=== PATIENT | female | born 1985 | race Caucasian/White ===

== ENCOUNTER 2017-12-11 20:17 | Emergency (ER) | payer OTHER, MEDICAID, SELFPAY | END 2017-12-11 21:15 | disposition home or self-care (01) | PROVIDERS: Emergency Provider Internal Medicine; Family Provider Physician Assistant; PCP Physician Assistant; Visit Provider Internal Medicine | DX: J01.90 Acute sinusitis, unspecified (principal); B97.89 Other viral agents as the cause of diseases classified elsewhere; R05 Cough | CPT/HCPCS: 99282 ==

== ENCOUNTER 2018-04-16 09:11 | Emergency (ER) | payer OTHER, MEDICAID, SELFPAY ==
[2018-04-16 09:14] VITALS: BP 127/84; PULSE 105; RESP 14; TEMP 37.1; O2SAT 97; BMI 38.2
--- NOTE | 2018-04-16 09:15 | ED.UPPEXIN ---
HPI - Extremity Injury (Upper) General Chief Complaint: Extremity Injury, Upper Stated Complaint: THINK I BROKE RIGHT WRIST Time Seen by Provider: 04/16/18 09:14 Source: patient Mode of arrival: ambulatory Limitations: no limitations History of Present Illness HPI narrative: 32-year-old female here for evaluation of right wrist injury. Patient states that it occurred last evening when she fell down some stairs. She states she was drinking last evening. No other injuries reported from the event. No loss of consciousness. States she did not hit her head. Woke up this morning and has pain in her right wrist. No prior injuries. Related Data Previous Rx's Medication Instructions Recorded acetaminophen-codeine 1 tab PO Q4-6H PRN #14 tab 04/16/18 Allergies Allergy/AdvReac Type Severity Reaction Status Date / Time amoxicillin [AMOXICILLIN] AdvReac Intermediate HIVES Verified 04/16/18 09:17 doxycycline [DOXYCYCLINE] AdvReac Intermediate HIVES Verified 04/16/18 09:17 hydrocodone [From VICODIN] AdvReac Mild HIVES - Verified 04/16/18 09:17 can take Tylenol without reaction Review of Systems Constitutional Denies frequent falls and Denies headache(s) ENT Ears, Nose, Mouth, and Throat: Denies headache(s) Cardiovascular Denies chest pain and Denies dyspnea Respiratory Denies dyspnea Gastrointestinal Gastrointestinal: Denies abdominal pain Musculoskeletal Comments: Right wrist pain Integumentary/Breasts Denies lesions and Denies rash Neurologic Denies frequent falls and Denies headache(s) Comments: No numbness or tingling right wrist Hematologic/Lymphatic Denies easy bleeding and Denies easy bruising [facility] Medical History Healthy adult (Acute) Surgical History History of tonsillectomy Status post appendectomy Family History Father Age: 65 History of skin cancer Grandmother Ovarian cancer Mother Age: 62 History of hypothyroidism Barretts esophagus Unspecified urinary incontinence Social History Smoking Status: Current some day smoker Exam Initial Vital Signs Initial Vital Signs: Vital Signs Temperature 98.7 F 08/22/18 09:14 Pulse Rate 105 H 04/16/18 09:14 Respiratory Rate 14 04/16/18 09:14 Blood Pressure 127/84 H 04/16/18 09:14 Pulse Oximetry 97 04/16/18 09:14 Const General: cooperative, healthy appearing, comfortable, well developed and well groomed Orientation: alert, awake and oriented x3 HENMT Head: normal to inspection and normocephalic Resp Effort & Inspection: normal respiratory effort Cardio Rate: regular rate Skin Lesions: no lesions Rashes: no rashes Wounds: no wounds Neuro Other: Sensation intact to light touch right upper extremity Extrem Other: Right shoulder unremarkable Right upper arm unremarkable Right elbow unremarkable Patient with pain with supination. Is able to pronate. Unable to flex and extend at the wrist without pain. Right hand unremarkable. Psych Appearance: grossly normal and well kempt Procedures Orthopedic Splinting/Casting Injury #1: Side: right Upper Extremity Injury Location: forearm Upper Extremity Immobilizer: sugar tong splint Course Orders Ordered: ED Orders 04/16/18 09:22 XR wrist RT min 3V Stat Hydromorphone HCl (Dilaudid) 0.5 mg IM Q4H PRN PRN Reason: Pain, Severe (7-10) Last Admin: 04/16/18 10:07 Dose: 0.5 mg Vital Signs - 8 hr 04/16/18 09:14 04/16/18 09:29 04/16/18 10:39 Temperature 98.7 F Pulse Rate 105 H 96 H Pulse Rate [Right Radial] 100 H Respiratory Rate 14 16 Blood Pressure 127/84 H Blood Pressure [Left Arm] 121/71 H Pulse Oximetry 97 99 MDM - Extremity Injury (Upper) Imaging Data XR wrist: Radiologist's impression: [address] [address] XRay Report Signed Patient: Amanda Gonzales MMR#: [id number] : 1985Acct:[id number] Age/Sex: 32 / FDate of Service: 04/16/18 Loc: ED Accession Number: [id number] Procedure: XR wrist RT min 3V Ordering Provider: Mandeep Demarco D.O. PROCEDURE: XR WRIST RT MIN 3V INDICATIONS: fall/ pain right wrist. TECHNIQUE: 3 views of the wrist were acquired. COMPARISON: None. FINDINGS: Bones: No dislocations. No suspicious bony lesions. There is a comminuted intra-articular fracture that with dorsal angulation involving the distal radius and ulnar styloid process fracture across its base, displaced dorsally and mildly medially. Scaphoid view: Not obtained but no trauma to the scaphoid is found. Soft tissues: No suspicious soft tissue calcifications. IMPRESSION: Distal radius and ulnar fractures as discussed, with appreciable malalignment and intra-articular comminution. Dictated by: Porter Mireles M.D. on 04/16/2018 at 9:48 Approved by: Porter Mireles M.D. on 04/16/2018 at 9:49 MDM Narrative Medical decision making narrative: Neurovascularly intact. Distal radius and ulnar fractures as described above. Patient was placed in a sugar-tong splint. She was given follow-up instructions with regard to Orthopedics. She was given care instructions of the splint. She expressed understanding and agreement with plan. Discharge Plan Departure Patient Disposition: Home Clinical Impression: Fracture of wrist Instructions: DI for Wrist Fracture, How to Take Care of Your Splint Activity Restrictions/Additional Instructions: Recommend that you contact her primary care doctor. Also recommend you contact the [facility] at [phone]. Keep the splint on and keep it clean and keep it dry. Return to the emergency department for any new or worsening symptoms Prescriptions: New acetaminophen-codeine 300-30 mg tablet 1 tab PO Q4-6H PRN (Reason: pain) Qty: 14 RF: 0
--- NOTE | 2018-04-16 09:22 | DI.RAD.S_ITS ---
PROCEDURE: XR WRIST RT MIN 3V INDICATIONS: fall/ pain right wrist. TECHNIQUE: 3 views of the wrist were acquired. COMPARISON: None. FINDINGS: Bones: No dislocations. No suspicious bony lesions. There is a comminuted intra-articular fracture that with dorsal angulation involving the distal radius and ulnar styloid process fracture across its base, displaced dorsally and mildly medially. Scaphoid view: Not obtained but no trauma to the scaphoid is found. Soft tissues: No suspicious soft tissue calcifications. IMPRESSION: Distal radius and ulnar fractures as discussed, with appreciable malalignment and intra-articular comminution. Dictated by: Porter Mireles M.D. on 04/16/2018 at 9:48 Approved by: Porter Mireles M.D. on 04/16/2018 at 9:49
[2018-04-16 09:29] VITALS: PULSE 100
[2018-04-16] MEDS: HYDROMORPHONE 2 MG INJ 0.5 MG IM (10:07)
[2018-04-16 10:39] VITALS: BP 121/71; PULSE 96; RESP 16; O2SAT 99
== END 2018-04-16 11:01 | disposition home or self-care (01) ==
PROVIDERS: Emergency Provider Emergency Medicine; Family Provider Physician Assistant; PCP Physician Assistant
DX: S62.101A Fracture of unspecified carpal bone, right wrist, initial encounter for closed fracture (principal); W10.8XXA Fall (on) (from) other stairs and steps, initial encounter
CPT/HCPCS: 73110; 96372; 99282; 99283; J1170

== ENCOUNTER 2018-04-17 07:08 | Emergency (ER) | payer OTHER, MEDICAID, SELFPAY ==
[2018-04-17 07:14] VITALS: BP 149/100; PULSE 81; RESP 15; TEMP 36.8; O2SAT 96; BMI 38.2
[2018-04-17] MEDS: OXYCODONE/ACETAMINOPHEN 5/325 TABLET 1 TAB PO (07:26)
--- NOTE | 2018-04-17 07:26 | ED.RECABL ---
HPI - Recheck/Abnormal Lab/Rx General Chief Complaint: Recheck/Abnormal Lab/Rx Stated Complaint: rt arm pain Time Seen by Provider: 04/17/18 07:11 Source: patient Mode of arrival: ambulatory Limitations: no limitations History of Present Illness HPI narrative: Patient is a 32-year-old female that I evaluated yesterday with a distal radius fracture placed in a splint sent home on Tylenol with codeine secondary to her recommendation for this medication here today for continued pain and feel like her pain medication is not working for her. No numbness or tingling in her fingers. She did call Orthopedics yesterday and stated that they were going to call her back today. No other new symptoms except for continued pain. Related Data Previous Rx's Medication Instructions Recorded acetaminophen-codeine 1 tab PO Q4-6H PRN #14 tab 04/16/18 oxycodone-acetaminophen 1 tab PO Q4-6H PRN #14 tab 04/17/18 Allergies Allergy/AdvReac Type Severity Reaction Status Date / Time amoxicillin [AMOXICILLIN] AdvReac Intermediate HIVES Verified 04/17/18 07:14 doxycycline [DOXYCYCLINE] AdvReac Intermediate HIVES Verified 04/17/18 07:14 hydrocodone [From VICODIN] AdvReac Mild HIVES - Verified 04/17/18 07:14 can take Tylenol without reaction Review of Systems Constitutional Denies fever(s) Musculoskeletal Comments: Right wrist pain Integumentary/Breasts Comments: No change in color to her fingers Neurologic Comments: No tingling to her fingers [facility] Medical History Healthy adult (Acute) Surgical History History of tonsillectomy Status post appendectomy Family History Father Age: 65 History of skin cancer Grandmother Ovarian cancer Mother Age: 62 History of hypothyroidism Barretts esophagus Unspecified urinary incontinence Social History Smoking Status: Current some day smoker Exam Initial Vital Signs Initial Vital Signs: Vital Signs Temperature 98.3 F 04/17/18 07:14 Pulse Rate 81 04/17/18 07:14 Respiratory Rate 15 04/17/18 07:14 Blood Pressure 149/100 H 04/17/18 07:14 Pulse Oximetry 96 04/17/18 07:14 Const General: cooperative, healthy appearing, comfortable, well developed, well groomed and No acute distress Cardio Other: Capillary refill less than 2 sec right fingers Neuro Other: Sensation intact to light touch right fingers Extrem Other: Right upper extremity in splint that was placed yesterday Psych Appearance: grossly normal and well kempt Course Orders Ordered: Discontinued Medications Ibuprofen (Advil) 800 mg PO NOW ONE Stop: 04/17/18 07:29 Last Admin: 04/17/18 07:30 Dose: 800 mg Oxycodone/Acetaminophen (Percocet 5/325) 1 tab PO NOW ONE Stop: 04/17/18 07:23 Last Admin: 04/17/18 07:26 Dose: 1 tab Vital Signs - 8 hr 04/17/18 07:14 Temperature 98.3 F Pulse Rate 81 Respiratory Rate 15 Blood Pressure 149/100 H Pulse Oximetry 96 MDM - Recheck/Abnormal Lab/Rx MDM Narrative Medical decision making narrative: Jorge bandage was removed in the splint was loosened. Patient states that she feels better after this. She was also given a Percocet here in the emergency department. Patient states she can take Percocet but not Vicodin. The splint was rewrapped with an Jorge bandage. The patient was given return instructions again. She was neurovascularly intact. I feel that this was not compartment syndrome just expected pain that was not controlled. I discussed this with the patient. She expressed understanding and agreement with plan. Discharge Plan Departure Patient Disposition: Home Clinical Impression: Closed fracture distal radius and ulna Instructions: How to Take Care of Your Splint Activity Restrictions/Additional Instructions: Take your medication as directed and like we discussed. Be sure to follow up with Orthopedics like we discussed. Keep the arm elevated as much as possible. Return to the emergency department for any new or worsening symptoms Prescriptions: New oxycodone-acetaminophen 5-325 mg tablet 1 tab PO Q4-6H PRN (Reason: pain) Qty: 14 RF: 0 No Action acetaminophen-codeine 300-30 mg tablet 1 tab PO Q4-6H PRN (Reason: pain) Qty: 14 RF: 0
[2018-04-17] MEDS: IBUPROFEN 400 MG TABLET 800 MG PO (07:30)
[2018-04-17 08:07] VITALS: BP 134/87; PULSE 82; RESP 14; O2SAT 98
== END 2018-04-17 08:07 | disposition home or self-care (01) ==
PROVIDERS: Emergency Provider Emergency Medicine; PCP Physician Assistant
DX: S52.501D Unspecified fracture of the lower end of right radius, subsequent encounter for closed fracture with routine healing (principal); S52.601D Unspecified fracture of lower end of right ulna, subsequent encounter for closed fracture with routine healing
CPT/HCPCS: 36415; 85025; 99282; 99283

== ENCOUNTER → 2018-04-17 16:24 | Outpatient (CLI) | payer OTHER, MEDICAID, SELFPAY ==
[2018-04-17 17:05] LABS: Add Manual Diff / Slide Review NO; Basophils Percent Auto 0.6 % (0-2); Eosinophils Percent Auto 1.1 % (2-4); Hematocrit 38.4 % (36-46); Hemoglobin 13.4 g/dL (12.0-16.0); Lymphocytes Percent Auto 26.2 % (25-40); Mean Corpuscular HGB Conc 34.9 % (30-36); Mean Corpuscular Hemoglobin 32.7 PG (26-34); Mean Corpuscular Volume 93.8 fL (80-100); Monocytes Percent Auto 5.7 % (3-14); Neutrophils Absolute Auto 6200 /uL (3000-5900); Neutrophils Percent Auto 66.4 % (50-75); Platelet Count 283 X10^3/uL (150-400); Red Blood Cell Count 4.09 X10^6/uL (4.0-5.2); Red Cell Distribution Width 12.7 % (11.6-14.8); White Blood Cell Count 9.4 X10^3/uL (4.5-11.0)
== END ==
PROVIDERS: PCP Physician Assistant; Visit Provider Orthopaedic Surgery
DX: S52.551A Other extraarticular fracture of lower end of right radius, initial encounter for closed fracture (principal)
CPT/HCPCS: 36415; 85025

== ENCOUNTER 2018-04-18 09:43 | Day surgery (SDC) | payer OTHER, MEDICAID, SELFPAY ==
[2018-04-18] VITALS (8 sets, daily range): BP systolic 109–130; BP diastolic 70–86; PULSE 88–106; RESP 15–23; TEMP 36.3–36.7; O2SAT 93–98; BMI 39.1
--- NOTE | 2018-04-18 10:22 | SUR.PREOP ---
Due to cast, surgical skin prep not done.
[2018-04-18] MEDS: LACTATED RINGERS 1,000 ML 42 ML IV (10:26)
[2018-04-18] MEDS: MIDAZOLAM 2 MG/2 ML VIAL IV (13:30)
[2018-04-18] MEDS: CLINDAMYCIN 900 MG/50 ML PIGGYBACK 50 MG IV (13:30)
[2018-04-18] MEDS: fentaNYL 100 MCG/2 ML INJ IV (13:31)
--- NOTE | 2018-04-18 13:34 | PM.PREOP ---
Pre-operative Note Interval Note Pre-op Check: Yes History & Physical Reviewed by Physician and Yes Exam Performed Changes: No
--- NOTE | 2018-04-18 13:36 | PM.OP.1 ---
Operative Date/Time/Diagnoses Date of procedure: 04/18/18 Time of procedure: 14:52 Pre-op diagnosis: Right distal radius fracture, intraarticular Post-op diagnosis: same Procedure & Clinicians Procedure: ORIF of right distal radius fracture, intra-articular 3 part Same procedure as scheduled: Yes Indications: 32-year-old female with a displaced intra-articular distal radius fracture. It was felt she would benefit from operative reduction and fixation. Risks and benefits of surgery were discussed and appropriate consents were obtained. These include but not limited to medical risks of heart attack, stroke, , DVT, PE, infection, bleeding, scarring, nerve injury, nonunion, malunion, stiffness, laxity, loss of motion or strength, need for further surgery. Surgeon: Anuj Meza Click Yes if Unassisted: Yes Anesthesia Type: General and Peripheral nerve block Operative Notes Findings: None Closure Type: primary Specimen(s): none sent Implants & Drains: [employer] volar plate Estimated Blood Loss (mL): 5 Tourniquet time (min): 26 Procedure in detail: The patient was brought to the operating room and intubated on the table. Time-out was performed. Attention was turned towards the well-marked right wrist. Preoperative antibiotics were given. The arm was prepped and draped in the standard sterile fashion. An Esmarch was used to exsanguinate the limb and the tourniquet was inflated. A 8 cm incision was made along the FCR course curving radially distally across the wrist crease. We sharply dissected through the FCR tendon sheath and retracted the tendon and then came down to the quadratus. This was elevated off the distal radius. The fracture was exposed and cleaned up with a curette. We then reduced the fracture fragments and confirmed under x-ray that we had good reduction of the intra-articular surface.. We then took a [employer] volar plate. It was placed against the bone and x-ray was taken to confirm positioning. One screw was placed through the shaft in the variable hole. This was checked under x-ray and tightened down. We then placed distal row threaded pegs and proximal row screws in the distal fragment. We started along the ulnar column fragment and then finished out radially in the styloid. We then went back and placed the final shaft screws. Final x-rays were taken. The wound was irrigated. The superficial skin were closed. The patient was placed in a well-padded volar splint. They are extubated and brought to recovery with no complications. Complications: none Condition: stable Disposition: PACU Plan for aftercare: Outpatient. Return to clinic in 1 and half weeks to start hand therapy.
--- NOTE | 2018-04-18 13:45 | SUR.PREOP ---
Interscalene block by Dr Gonzales done betem 1335 and 1345.
--- NOTE | 2018-04-18 14:12 | SUR.OPER ---
Supine on padded OR bed, head on pillow, arms secured on padded arm boards at <90 degrees abduction, legs uncrossed, safety belt at thigh, tape over blanket over lower legs.
[2018-04-18] MEDS: BUPIVACAINE 0.5% (PF) VIAL 30 ML INJ (14:24)
--- NOTE | 2018-04-18 14:42 | DI.RAD.S_ITS ---
PROCEDURE: XR WRIST RT 2V INDICATIONS: RIGHT WRIST REPAIR AFTER FRACTURE TECHNIQUE: 2 views of the wrist were acquired. COMPARISON: [facility], , XR WRIST RT MIN 3V, 04/16/2018, 9:26. FINDINGS: Bones: Intraoperative C-arm images demonstrate improved Status post ORIF of comminuted, intra-articular distal radial metaphyseal fracture. Stabilization plate and multiple associated fixation screws in expected position. Ulnar styloid tip fracture change. Scaphoid view: Not requested. Soft tissues: No suspicious soft tissue calcifications. IMPRESSION: Near-anatomic status post ORIF of distal radial metaphyseal fracture. Dictated by: Álvaro Villeda [facility] Interpreted: Porter Mireles MD on 04/18/2018 at 14:45 Approved by: Porter Mireles M.D. on 04/21/2018 at 9:54
== END 2018-04-18 16:04 ==
LOC: OR 09:44
PROVIDERS: PCP Physician Assistant; Visit Provider Orthopaedic Surgery
PROC: (CPT 25607; principal; 2018-04-18 11:15)
DX: S52.571A Other intraarticular fracture of lower end of right radius, initial encounter for closed fracture (principal); S52.611A Displaced fracture of right ulna styloid process, initial encounter for closed fracture; W10.8XXA Fall (on) (from) other stairs and steps, initial encounter; F17.210 Nicotine dependence, cigarettes, uncomplicated; E66.9 Obesity, unspecified; Z68.38 Body mass index [BMI] 38.0-38.9, adult
CPT/HCPCS: 25607; 73100; 76000; J1100; J2250; J2405; J2704; J3010

== ENCOUNTER → 2018-09-02 10:16 | Outpatient (CLI) | payer OTHER, MEDICAID, SELFPAY ==
--- NOTE | 2018-09-02 10:19 | DI.RAD.S_ITS ---
PROCEDURE: XR KNEE RT 3V INDICATIONS: right knee pain due to fall;patellar pain TECHNIQUE: 3 views of the knee were acquired. COMPARISON: None. FINDINGS: Bones: No fractures or dislocations. No suspicious bony lesions. There is mild medial femorotibial compartment narrowing. Soft tissues: No joint effusion. No suspicious soft tissue calcifications. IMPRESSION: Mild degenerative change. Dictated by: Claritza Almeida M.D. on 09/02/2018 at 15:38 Approved by: Claritza Almeida M.D. on 09/02/2018 at 15:39
== END ==
PROVIDERS: PCP Physician Assistant; Visit Provider Physician Assistant
DX: M25.561 Pain in right knee (principal); M17.11 Unilateral primary osteoarthritis, right knee
CPT/HCPCS: 73562

== ENCOUNTER → 2019-05-15 14:26 | Outpatient (CLI) | payer OTHER, MEDICAID, SELFPAY ==
--- NOTE | 2019-05-15 14:29 | DI.RAD.S_ITS ---
PROCEDURE: XR CERVICAL SPINE 2V OR 3V INDICATIONS: cervicalgia TECHNIQUE: 3 view(s) of the cervical spine were acquired. COMPARISON: None. FINDINGS: Bones: No fractures or dislocations to the T1 level. The lateral masses of C1 appear intact on the odontoid view. No suspicious bony lesions. There is straightening of the normal cervical lordosis. Soft tissues: No prevertebral soft tissue swelling. The visualized lung apices are unremarkable. IMPRESSION: Straightening of the normal cervical lordosis is seen, which is commonly observed in patients with muscular spasm. Dictated by: Lv Izquierdo M.D. on 05/15/2019 at 15:15 Approved by: Lv Izquierdo M.D. on 05/15/2019 at 15:15
== END ==
PROVIDERS: PCP Physician Assistant; Visit Provider Hospitalist
DX: M54.2 Cervicalgia (principal)
CPT/HCPCS: 72040

== ENCOUNTER → 2019-06-02 16:57 | Outpatient (CLI) | payer OTHER, MEDICAID, SELFPAY ==
--- NOTE | 2019-06-02 17:01 | DI.RAD.S_ITS ---
PROCEDURE: XR RIBS LT MIN 3V W CXR1V INDICATIONS: L rib pain TECHNIQUE: 2 views of the left ribs were acquired, along with a single view chest. COMPARISON: None. FINDINGS: Surgical changes and devices: None. Bones and chest wall: Mildly displaced posterior lateral left sixth and seventh rib fractures. No suspicious bony lesions. Overlying soft tissues appear unremarkable. Lungs and pleura: No pleural effusions or pneumothorax. Lungs appear clear. Mediastinum: Mediastinal contours appear normal. Heart size is normal. IMPRESSION: Left sixth and seventh rib fractures. Dictated by: Federica Williamson MD, PhD on 06/02/2019 at 16:45 Approved by: Federica Williamson MD, PhD on 06/02/2019 at 16:46
== END ==
PROVIDERS: PCP Physician Assistant; Visit Provider Nurse Practitioner
DX: R07.81 Pleurodynia (principal); S22.42XA Multiple fractures of ribs, left side, initial encounter for closed fracture
CPT/HCPCS: 71101

== ENCOUNTER → 2019-06-04 14:39 | Outpatient (CLI) | payer OTHER, MEDICAID, SELFPAY ==
--- NOTE | 2019-06-04 14:40 | DI.RAD.S_ITS ---
PROCEDURE: XR HAND RT MIN 3V INDICATIONS: fall, pain to hand, r/o fracture TECHNIQUE: 3 views of the hand(s) acquired. COMPARISON: Right wrist radiographs . FINDINGS: Bones: No acute fractures or dislocations. Distal radius ORIF fixation is stable in appearance. No jaycob-screw lucency to suggest loosening or infection. No hardware fracture. Chronic ulnar styloid fracture. Carpal bones are normally aligned. No suspicious bony lesions. Soft tissues: No suspicious soft tissue calcifications. IMPRESSION: No acute osseous abnormality. Stable distal radial ORIF and chronic ulnar styloid fracture. Dictated by: Benja Rodrigues M.D. on 06/04/2019 at 15:37 Approved by: Benja Rodrigues M.D. on 06/04/2019 at 15:39
== END ==
PROVIDERS: PCP Physician Assistant; Visit Provider Physician Assistant
DX: M79.641 Pain in right hand (principal); S69.91XA Unspecified injury of right wrist, hand and finger(s), initial encounter; W19.XXXA Unspecified fall, initial encounter
CPT/HCPCS: 73130

== ENCOUNTER → 2019-07-15 10:08 | Outpatient (CLI) | payer OTHER, MEDICAID, SELFPAY ==
[2019-07-15 11:08] LABS: Add Manual Diff / Slide Review NO; Basophils Absolute Auto 0 /uL (0-100); Basophils Percent Auto 0.5 % (0-2); Eosinophils Absolute Auto 100 /uL (0-450); Eosinophils Percent Auto 1.2 % (2-4); Hemoglobin 14.2 g/dL (12.0-16.0); Lymphocytes Absolute Auto 2000 /uL (1100-4500); Mean Corpuscular HGB Conc 36.3 % (30-36); Mean Corpuscular Volume 93.6 fL (80-100); Monocytes Absolute Auto 400 /uL (0-900); Neutrophils Absolute Auto 6400 /uL (1500-7000); Neutrophils Percent Auto 71.3 % (50-75); Platelet Count 279 X10^3/uL (150-400); Red Blood Cell Count 4.17 X10^6/uL (4.0-5.2); Red Cell Distribution Width 13.4 % (11.6-14.8); White Blood Cell Count 8.9 X10^3/uL (4.5-11.0)
[2019-07-15 11:39] LABS: Alanine Aminotransferase 21 IU/L (<35); Albumin 4.3 g/dL (3.5-5.0); Albumin Globulin Ratio 1.4 (1.0-2.8); Alkaline Phosphatase 85 U/L (38-126); Aspartate Aminotransferase 23 IU/L (14-36); BUN Creatinine Ratio 21.4 (6-22); Bilirubin Total 0.5 mg/dL (0.2-1.3); Blood Urea Nitrogen 15 mg/dL (7-17); Calcium 9.6 mg/dL (8.4-10.2); Carbon Dioxide 26 mmol/L (22-32); Chloride 105 mmol/L (98-107); Cholesterol 168 mg/dL (140-199); Estimated Glomerular Filt Rate > 60.0 mL/min (>60); Glucose 86 mg/dL (70-100); HDL Cholesterol 59 mg/dL (40-60); HEMOLYSIS < 15 (0-50); LDL Cholesterol Calculated 86 mg/dL (<100); Sodium 138 mmol/L (137-145); Total Protein 7.3 g/dL (6.3-8.2); Triglycerides 116 mg/dL (35-150)
[2019-07-15 11:47] LABS: Iron 81 ug/dL (37-170)
[2019-07-15 12:15] LABS: Thyroid Stimulating Hormone 3.81 uIU/mL (0.47-4.68)
== END ==
PROVIDERS: PCP Physician Assistant; Visit Provider Physician Assistant
DX: Z13.220 Encounter for screening for lipoid disorders (principal); Z13.6 Encounter for screening for cardiovascular disorders; R53.83 Other fatigue
CPT/HCPCS: 36415; 80053; 80061; 83540; 84443; 85025

== ENCOUNTER → 2020-06-25 09:24 | Outpatient (CLI) | payer OTHER, MEDICAID, SELFPAY ==
[2020-06-25 10:24] LABS: Add Manual Diff / Slide Review NO; Basophils Absolute Auto 0 /uL (0-100); Basophils Percent Auto 0.6 % (0-2); Eosinophils Absolute Auto 100 /uL (0-450); Eosinophils Percent Auto 1.2 % (2-4); Hematocrit 41.9 % (36-46); Hemoglobin 14.2 g/dL (12.0-16.0); Lymphocytes Absolute Auto 1900 /uL (1100-4500); Lymphocytes Percent Auto 28.7 % (25-40); Mean Corpuscular HGB Conc 33.9 % (30-36); Mean Corpuscular Hemoglobin 33.2 PG (26-34); Mean Corpuscular Volume 98.1 fL (80-100); Monocytes Absolute Auto 400 /uL (0-900); Monocytes Percent Auto 6.3 % (3-14); Neutrophils Absolute Auto 4200 /uL (1500-7000); Neutrophils Percent Auto 63.2 % (50-75); Platelet Count 253 X10^3/uL (150-400); Red Blood Cell Count 4.27 X10^6/uL (4.0-5.2); Red Cell Distribution Width 12.2 % (11.6-14.8); White Blood Cell Count 6.6 X10^3/uL (4.5-11.0)
[2020-06-25 10:50] LABS: Alanine Aminotransferase 20 IU/L (<35); Albumin 4.1 g/dL (3.5-5.0); Albumin Globulin Ratio 1.4 (1.0-2.8); Alkaline Phosphatase 77 U/L (38-126); Aspartate Aminotransferase 19 IU/L (14-36); BUN Creatinine Ratio 23.2 (6-22); Bilirubin Total 0.7 mg/dL (0.2-1.3); Blood Urea Nitrogen 13 mg/dL (7-17); Calcium 9.4 mg/dL (8.4-10.2); Carbon Dioxide 27 mmol/L (22-32); Chloride 104 mmol/L (98-107); Cholesterol 164 mg/dL (140-199); Estimated Glomerular Filt Rate > 60.0 mL/min (>60); Glucose 92 mg/dL (70-100); HDL Cholesterol 50 mg/dL (40-60); HEMOLYSIS < 15 (0-50); LDL Cholesterol Calculated 102 mg/dL (<100); Potassium 3.9 mmol/L (3.4-5.1); Sodium 136 mmol/L (137-145); Total Protein 7.1 g/dL (6.3-8.2); Triglycerides 62 mg/dL (35-150)
[2020-06-25 11:22] LABS: TSH w/ Reflex to FT4 4.07 uIU/mL (0.47-4.68)
== END ==
PROVIDERS: PCP Registered Nurse; Referring Provider Registered Nurse; Visit Provider Registered Nurse
DX: Z86.39 Personal history of other endocrine, nutritional and metabolic disease (principal); Z71.89 Other specified counseling; E66.9 Obesity, unspecified
CPT/HCPCS: 36415; 80053; 80061; 84443; 85025

== ENCOUNTER → 2020-09-06 12:57 | Outpatient (CLI) | payer OTHER, MEDICAID, SELFPAY ==
--- NOTE | 2020-09-06 15:52 | DIET.PN ---
Dietary Progress Note Assessment: 34y F attending nutrition visit for help with health surveillance as she is obese and has strong history of heart disease in her family. 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 Pt tried phentermine for 2 weeks but felt it made her too emotional so stopped. Pt has had luck losing 30# in past 6mo through a modified ketogenic diet. Pt doesn't feel this diet is a good salvage determiner solution and is worried it will harm her cardiovascular system. Pt endorses a passion for food, enjoying the satisfaction of eating ultraprocessed foods, and occasionally binge eats, but usually only when she is restricting her diet in other ways. Pt interested in general healthy dietary reccs for weight regulation and vitality. HT: 5'2 WT: 180# BMI: 32.9 Usual Day: wakes 6:30am 7:30am drive thru on way to work-always iced americano c SF syrup and heavy cream (on keto) or almond/oat milk with either egg bites or breakfast sandwich 1pm lunch: leftovers Dinner: pt feels she eats a lot at dinner since she doesn't eat much during day. Often fast food or take out (kai- pad kai c spring rolls; pizza) Pt has been doing some meal planning while on keto and would like to do more but feels internet has conflicting information. Pt has chronic knee pain which limits her physical activity but started new round of physical therapy this week. Nutrition Diagnosis: obesity r/t nutrition related knowledge deficit and physical inactivity aeb BMI 32.9, pt afraid to gain weight if she stops keto, pt came to visit with many questions (fat in steak vs salmon, how many carbs...) and pt enrolled in PT to support mobility and px management. Interventions: 1. Educated pt on Hunger Scale, using handout, encouraged pt to use this guide when deciding where to place meals and snacks in day and for portion control. Using Hunger Scale to assess patterns, emotions, situations around binge eating habits. 2. Educated pt on healthy plate model setting CHO intake to 30-45g/meal, 1/4 plate protein, 1/2 plate fruit and non-starchy veg. Used food models to demonstrate as well as problem solve commonly eaten meals. 3. Calculated BEE at 1580kcals. Encouraged pt to track food for 2 weeks with kcals, CHO levels, and hunger scale. 4. Encouraged pt to read The Power of Habit book to learn how to identify and adjust habits she wants to change such as eating fast food.
== END ==
PROVIDERS: PCP Registered Nurse; Referring Provider Registered Nurse; Visit Provider Registered Nurse
DX: E66.9 Obesity, unspecified (principal); Z68.32 Body mass index [BMI] 32.0-32.9, adult; Z71.3 Dietary counseling and surveillance; Z82.49 Family history of ischemic heart disease and other diseases of the circulatory system
CPT/HCPCS: 97802

== ENCOUNTER → 2021-05-31 09:58 | Outpatient (CLI) | payer OTHER, MEDICAID, SELFPAY ==
[2021-05-31 11:40] LABS: Add Manual Diff / Slide Review NO; Basophils Absolute Auto 0 /uL (0-100); Basophils Percent Auto 0.8 % (0-2); Eosinophils Absolute Auto 100 /uL (0-450); Hematocrit 39.3 % (36-46); Lymphocytes Absolute Auto 1800 /uL (1100-4500); Lymphocytes Percent Auto 35.7 % (25-40); Mean Corpuscular HGB Conc 33.2 % (30-36); Mean Corpuscular Hemoglobin 32.4 PG (26-34); Mean Corpuscular Volume 97.6 fL (80-100); Monocytes Absolute Auto 300 /uL (0-900); Monocytes Percent Auto 6.3 % (3-14); Neutrophils Absolute Auto 2900 /uL (1500-7000); Neutrophils Percent Auto 55.2 % (50-75); Platelet Count 271 X10^3/uL (150-400); Red Blood Cell Count 4.02 X10^6/uL (4.0-5.2); Red Cell Distribution Width 12.6 % (11.6-14.8); White Blood Cell Count 5.2 X10^3/uL (4.5-11.0)
[2021-05-31 12:06] LABS: Alanine Aminotransferase 22 IU/L (<35); Albumin Globulin Ratio 1.7 (1.0-2.8); Alkaline Phosphatase 74 U/L (38-126); Aspartate Aminotransferase 21 IU/L (14-36); Bilirubin Total 0.3 mg/dL (0.2-1.3); Blood Urea Nitrogen 13 mg/dL (7-17); Calcium 9.5 mg/dL (8.4-10.2); Carbon Dioxide 30 mmol/L (22-32); Chloride 103 mmol/L (98-107); Estimated Glomerular Filt Rate > 60.0 mL/min (>60); Globulin 2.3 g/dL (1.7-4.1); Glucose 80 mg/dL (70-100); HEMOLYSIS < 15 (0-50); Potassium 4.4 mmol/L (3.4-5.1); Sodium 139 mmol/L (137-145); Total Protein 6.3 g/dL (6.3-8.2)
[2021-05-31 12:35] LABS: TSH w/ Reflex to FT4 2.01 uIU/mL (0.47-4.68)
[2021-05-31 12:53] LABS: Vitamin B12 Reflex MMA if <400 392 pg/mL (239-931)
[2021-06-02 07:36] LABS: Methylmalonic Acid,Serum 149 nmol/L (0-378)
== END ==
PROVIDERS: PCP Registered Nurse; Referring Provider Nurse Practitioner Family; Visit Provider Nurse Practitioner Family
DX: F32.9 Major depressive disorder, single episode, unspecified (principal); R53.83 Other fatigue
CPT/HCPCS: 36415; 80053; 82607; 83921; 84443; 85025